=== PATIENT | female | born 1950 | race Caucasian/White ===

== ENCOUNTER 2020-01-16 05:54 | Inpatient (IN) ==
[2020-01-04 10:19] LABS: Basophils % 0.6 % (0.0-0.8); Eosinophils # 0.2 10*3/uL (0.0-0.87); Eosinophils % 3.4 % (0.00-10.9); Hemoglobin 13.1 GM/DL (12.0-16.0); Immature Granulocytes % 0.2 %; Immature Granulocytes Absolute 0.01 #; Lymphocytes # 1.7 10*3/uL (1.4-4.0); Lymphocytes % 32.2 % (21.3-54.2); Mean Corpuscular HGB Conc 31.2 GM/DL (32-36); Mean Corpuscular Volume 92.1 FL (87-102); Mean Platelet Volume 11.8 FL (9.6-12.0); Monocytes % 8.6 % (1.7-12.7); Platelet Count 153 T/CUMM (130-400); Red Blood Count 4.56 MC/CUMM (3.8-5.5); White Blood Count 5.4 T/CUMM (4-12)
[2020-01-04 10:40] LABS: Albumin 3.3 G/DL (3.4-5.0); Bilirubin,Total 0.7 MG/DL (0.2-1.0); Calcium 9.3 MG/DL (8.5-10.1); Osmolality,Calculated 281.1 MOS/KG (273-304); Total Protein 6.9 G/DL (6.4-8.3)
[2020-01-16] MEDS ORDERED: ERTAPENEM 1,000 MG in SODIUM CHLORIDE 0.9% 100 ML IV ONE (06:00)
[2020-01-16] MEDS ORDERED: ERTAPENEM 1,000 MG VIAL ONE (06:01)
[2020-01-16] MEDS: LACTATED RINGERS 1,000 ML IV SCH ×3 (06:30→14:12)
[2020-01-16] MEDS ORDERED: DEXAMETHASONE 4 MG/1 ML VIAL ONE ×2 (06:30→11:33)
[2020-01-16] MEDS ORDERED: EPINEPHrine 1 MG/ML VIAL ONE (06:30)
[2020-01-16] MEDS ORDERED: BUPIVACAINE MPF 0.25% 30 ML VIAL ONE (06:30)
[2020-01-16] MEDS ORDERED: TISSUE ADHESIVE 1 EACH APPLICATOR TOP ONE (06:31)
[2020-01-16] MEDS ORDERED: INDOCYANINE GREEN 25 MG VIAL IV ONE (06:31)
[2020-01-16] MEDS ORDERED: GABAPENTIN 400 MG CAPSULE ONE (06:34)
[2020-01-16] MEDS ORDERED: SCOPOLAMINE 1.5 MG PATCH TRANSDERM ONE (06:34)
[2020-01-16] MEDS ORDERED: ACETAMINOPHEN 500 MG TABLET ONE (06:34)
[2020-01-16] MEDS ORDERED: FAMOTIDINE 20 MG TABLET ONE (06:40)
[2020-01-16] MEDS ORDERED: SCOPOLAMINE 1.5 MG PATCH TRANSDERM STA (06:41)
[2020-01-16] MEDS ORDERED: FAMOTIDINE 20 MG TABLET PO STA (06:42)
[2020-01-16] MEDS ORDERED: ACETAMINOPHEN 500 MG TABLET PO STA (06:42)
[2020-01-16] MEDS ORDERED: GABAPENTIN 400 MG CAPSULE PO STA (06:43)
[2020-01-16] MEDS ORDERED: ALBUMIN 5% 12.5 GM/250 ML VIAL IV ONE (08:53)
[2020-01-16] MEDS ORDERED: ONDANSETRON 4 MG/2 ML VIAL IV PRN (11:16)
[2020-01-16] MEDS ORDERED: HYDROmorphone 2 MG/1 ML VIAL IV PRN (11:16)
[2020-01-16] MEDS ORDERED: fentaNYL 100 MCG/2 ML VIAL ONE (11:33)
[2020-01-16] MEDS ORDERED: MIDAZOLAM 2 MG/2 ML VIAL ONE (11:33)
[2020-01-16] MEDS ORDERED: propofoL 200 MG/20 ML VIAL IV ONE (11:33)
[2020-01-16] MEDS ORDERED: ONDANSETRON 4 MG/2 ML VIAL ONE (11:33)
[2020-01-16] MEDS ORDERED: LIDOCAINE 2% 5 ML VIAL ONE (11:33)
[2020-01-16] MEDS ORDERED: SUCCINYLCHOLINE 200 MG/10 ML VIAL ONE (11:34)
[2020-01-16] MEDS ORDERED: ROCURONIUM 100 MG/10 ML VIAL IV ONE (11:34)
[2020-01-16] MEDS ORDERED: ePHEDrine 50 MG/ML AMP ONE (11:35)
[2020-01-16] MEDS ORDERED: PROMETHAZINE 25 MG/1 ML VIAL ONE (11:35)
[2020-01-16] MEDS ORDERED: GLYCOPYRROLATE 0.4 MG/2 ML VIAL ONE (11:35)
[2020-01-16] MEDS ORDERED: SEVOFLURANE 1 UNIT/15 MINUTE INH ONE (11:35)
[2020-01-16] MEDS ORDERED: NEOSTIGMINE 10 MG/10 ML VIAL ONE (11:36)
[2020-01-16] MEDS ORDERED: LACTATED RINGERS 1,000 ML IV ONE (11:36)
[2020-01-16] MEDS ORDERED: PHENYLEPHRINE 1 MG/10 ML SYRINGE IV ONE (11:36)
[2020-01-16] MEDS ORDERED: SODIUM CHLORIDE 0.9% 100 ML IV ONE (11:36)
[2020-01-16] MEDS: KETOROLAC 15 MG/1 ML VIAL IV SCH ×2 (14:11→20:42)
[2020-01-16] MEDS: METHOCARBAMOL INJ 500 MG in SODIUM CHLORIDE 0.9% 100 ML IV SCH ×2 (14:12→22:14)
[2020-01-16] MEDS: GABAPENTIN 300 MG CAPSULE PO SCH ×2 (14:16→20:43)
[2020-01-17] MEDS: LACTATED RINGERS 1,000 ML IV SCH ×4 (01:30→20:30)
[2020-01-17] MEDS: KETOROLAC 15 MG/1 ML VIAL IV SCH ×4 (03:20→20:30)
[2020-01-17 05:50] LABS: Basophils % 0.1 % (0.0-0.8); Hemoglobin 10.8 GM/DL (12.0-16.0); Immature Granulocytes % 0.4 %; Immature Granulocytes Absolute 0.05 #; Lymphocytes # 1.2 10*3/uL (1.4-4.0); Lymphocytes % 9.5 % (21.3-54.2); Mean Corpuscular HGB Conc 32.7 GM/DL (32-36); Mean Corpuscular Volume 89.4 FL (87-102); Mean Platelet Volume 12.5 FL (9.6-12.0); Monocytes % 6.6 % (1.7-12.7); Neutrophils % 83.4 % (38.7-73.9); Platelet Count 110 T/CUMM (130-400); Red Blood Count 3.69 MC/CUMM (3.8-5.5); Red Cell Distribution Width 14.4 % (9.3-17.3); White Blood Count 12.1 T/CUMM (4-12)
[2020-01-17] MEDS: ENOXAPARIN 40 MG/0.4 ML SYRINGE SUBCUT SCH (06:06)
[2020-01-17] MEDS: METHOCARBAMOL INJ 500 MG in SODIUM CHLORIDE 0.9% 100 ML IV SCH ×3 (06:06→21:34)
[2020-01-17 06:13] LABS: Calcium 8.5 MG/DL (8.5-10.1); Osmolality,Calculated 273.7 MOS/KG (273-304)
[2020-01-17] MEDS: GABAPENTIN 300 MG CAPSULE PO SCH ×3 (08:36→21:33)
[2020-01-18] MEDS: METHOCARBAMOL INJ 500 MG in SODIUM CHLORIDE 0.9% 100 ML IV SCH ×2 (05:02→14:38)
[2020-01-18] MEDS: ENOXAPARIN 40 MG/0.4 ML SYRINGE SUBCUT SCH (05:03)
[2020-01-18 05:42] LABS: Basophils % 0.1 % (0.0-0.8); Eosinophils % 0.3 % (0.00-10.9); Hematocrit 31.8 VOL% (35.7-47.0); Hemoglobin 9.9 GM/DL (12.0-16.0); Immature Granulocytes % 0.7 %; Immature Granulocytes Absolute 0.07 #; Lymphocytes # 1.3 10*3/uL (1.4-4.0); Lymphocytes % 12.8 % (21.3-54.2); Mean Corpuscular HGB Conc 31.1 GM/DL (32-36); Mean Corpuscular Volume 92.7 FL (87-102); Mean Platelet Volume 12.7 FL (9.6-12.0); Monocytes % 6.2 % (1.7-12.7); Neutrophils % 79.9 % (38.7-73.9); Platelet Count 103 T/CUMM (130-400); Red Blood Count 3.43 MC/CUMM (3.8-5.5); Red Cell Distribution Width 14.6 % (9.3-17.3); White Blood Count 10.2 T/CUMM (4-12)
[2020-01-18] MEDS: LACTATED RINGERS 1,000 ML IV SCH ×3 (06:43→08:50)
[2020-01-18] MEDS: GABAPENTIN 300 MG CAPSULE PO SCH ×2 (08:26→14:38)
[2020-01-18 11:55] VITALS: BP 125/70
[2020-01-18 15:47] LABS: Basophils % 0.1 % (0.0-0.8); Eosinophils # 0.1 10*3/uL (0.0-0.87); Eosinophils % 0.6 % (0.00-10.9); Hematocrit 30.3 VOL% (35.7-47.0); Hemoglobin 9.8 GM/DL (12.0-16.0); Immature Granulocytes % 0.5 %; Immature Granulocytes Absolute 0.05 #; Lymphocytes # 1.1 10*3/uL (1.4-4.0); Lymphocytes % 10.1 % (21.3-54.2); Mean Corpuscular HGB Conc 32.3 GM/DL (32-36); Mean Platelet Volume 13.3 FL (9.6-12.0); Monocytes % 6.3 % (1.7-12.7); Neutrophils % 82.4 % (38.7-73.9); Platelet Count 101 T/CUMM (130-400); Red Blood Count 3.33 MC/CUMM (3.8-5.5); Red Cell Distribution Width 14.6 % (9.3-17.3); White Blood Count 10.8 T/CUMM (4-12)
== END 2020-01-18 17:05 | disposition home or self-care (01) | DRG 331 ==
LOC: N.SDSINP 05:54 → N.OR 05:54 → N.SDSINP 05:55 → N.3E 12:29
PROVIDERS: ADMIT Student in an Organized Health Care Education/Training Program; ATTEND Student in an Organized Health Care Education/Training Program